=== PATIENT | female | born 1965 | race Caucasian/White ===

== ENCOUNTER → 2020-04-08 | Outpatient (CLI) | payer OTHER ==
--- NOTE | 2020-04-08 14:42 | KCIC ---
EXAM: Bilateral knees, standing view; bilateral hips, 2 views. HISTORY: Pain. COMPARISON: None. FINDINGS: Bilateral knees: A frontal standing view both knees is obtained. There is no fracture, dislocation or subluxation. Pelvis and bilateral hips: A frontal view the pelvis and the proximal views of both hips are obtained. There is right hip joint space narrowing with subchondral cirrhosis. There is moderate right greater than left acetabular and femoral head spurring. There is sacralization of the right L5 transverse process, a normal variant. 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 IMPRESSION: 1. Moderate to severe right and moderate left hip osteoarthritis. 2. No acute osseous finding. Electronically signed by: Karla Matos MD (04/08/2020 2:38 PM) [id number]
== END ==
LOC: KCIC 13:41
PROVIDERS: ATTEND Physical Medicine & Rehabilitation
DX: M17.0 Bilateral primary osteoarthritis of knee (principal); M51.37 Other intervertebral disc degeneration, lumbosacral region; M16.12 Unilateral primary osteoarthritis, left hip
CPT/HCPCS: 73521; 73565